=== PATIENT | female | born 1965 | race Caucasian/White ===

== ENCOUNTER → 2017-11-20 | Outpatient (CLI) | payer BC ==
[~2017-11-20] MED LIST: ACET325 PO; ALBU90I INH; ALBU90OI INH; ALPR.5; ARIP10; Amoxicillin500 MG PO; BENZ2 PO; BUSP5; BUTASPCAFT PO; Buspirone HCl7.5 MG PO; CEPH500 PO; CITA20 PO; CLAR500 PO; CLON1; CYCL10 PO; Clotrim Antifun15 GM TP; Cymbalta30 MG PO; D3-20002000 UNIT PO; DIAZ5 PO; DICL75ER PO; DULO30; DULO60 PO; ENTRESTO 24 MG1 EACH PO; EPIPEN 2-P0.3 MG/0.3 IJ; EPIPEN0.3 MG/0.3 IM; ESTRADIOL1 MG PO; ESTRTP; FLUO10; FLUO20; FLUSAL1005 IH; GABA300; HALO2 PO; HYDACE5 PO; HYDPAM25; HYDR1TAB94; HYDR1TAB94 PO; IBUP100S; IBUP200; IBUP200 PO; IBUP400 PO; IBUP600 PO; IMITREX; IPRAOI INH; Imitrex100 MG PO; LIDO700A20 TOP; LORA1 PO; LOSA25 PO; METF500; METH10; METH10 PO; METH40 PO; METHADONE; METO25ER PO; METPRE4DP PO; Mobic7.5 MG PO; NICO21TP TOP; Neurontin 300300 MG PO; OMEPRAZOLE MAGN20 MG PO; ONDA4ODT MM; OXYACE5T PO; OXYACE7.5T PO; OXYB5 PO; OXYC10ER PO; OXYC15ER PO; PENVK500 PO; PHENTERMINE PO; PRAZ1 PO; PRED20 PO; PROG100; PROG100 PO; PROM25 PO; Percocet 5-3251 EACH PO; QUET25 PO; QUET300; Robaxin-750750 MG PO; Robaxin500 MG PO; SPIR25 PO; SUMA25; SUMA25 PO; SUMA6I SC; TOPI50 PO; TORSE20 PO; TRAM50 PO; Ultram50 MG PO; ZOLM2.5; ZOLP10 PO
[2017-11-20 16:11] LABS: BASOPHILS ABSOLUTE AUTO 0.03 K/mm3 (0.00-0.23); BASOPHILS PERCENT AUTO 0 % (0-2); EOSINOPHILS ABSOLUTE AUTO 0.11 K/mm3 (0.00-0.68); EOSINOPHILS PERCENT AUTO 2 % (0-6); Hematocrit 40.2 % (33.0-51.0); Hemoglobin 13.6 g/dL (11.5-16.0); IMMATURE GRAN PERCENT AUTO 0 % (0-1); LYMPHOCYTES ABSOLUTE AUTO 2.54 K/mm3 (0.84-5.20); LYMPHOCYTES PERCENT AUTO 34 % (21-46); MONOCYTES ABSOLUTE AUTO 0.85 K/mm3 (0.16-1.47); MONOCYTES PERCENT AUTO 11 % (4-13); Mean Corpuscular HGB Conc 33.8 g/dL (31.5-36.5); Mean Corpuscular Volume 86 fL (80-100); Mean Platelet Volume 10.7 fL (9.1-12.4); NEUTROPHILS ABSOLUTE AUTO 3.99 K/mm3 (1.96-9.15); NEUTROPHILS PERCENT AUTO 53 % (41-73); Platelet Count 227 K/mm3 (150-400); RDW Coefficient Variation 13.2 % (11.7-14.2); RDW Standard Deviation 41.2 fL (35.1-46.3); Red Blood Cell Count 4.69 M/mm3 (3.80-5.20); White Blood Cell Count 7.52 K/mm3 (4.00-11.30)
[2017-11-20 16:20] LABS: Alanine Aminotransfer (ALT/SGP 27 U/L (12-78); Albumin, Blood 3.2 g/dL (3.4-5.0); Albumin/Globulin Ratio 0.8 (0.8-1.8); Alk Phos 101 U/L (50-136); Anion Gap 9 mmol/L (6-16); Aspartate Aminotrans (AST/SGOT 24 U/L (12-37); Bilirubin, Total 0.4 mg/dL (0.1-1.0); Blood Urea Nitrogen 10 mg/dL (8-24); Bun/Creatinine Ratio 18.7 (12.0-20.0); CO2, Blood 23 mmol/L (21-32); Calcium, Blood 8.6 mg/dL (8.5-10.1); Chloride, Blood 109 mmol/L (98-108); Creatinine, Blood 0.53 mg/dL (0.40-1.00); Globulin, Blood 3.9 g/dL (2.2-4.0); Glomerular Filtration Rate >60 (60-); Glucose, Blood 88 mg/dL (70-99); Potassium, Blood 3.7 mmol/L (3.5-5.5); Sodium, Blood 141 mmol/L (136-145); Total Protein, Blood 7.1 g/dL (6.4-8.2)
== END ==
LOC: LAB 15:15 → LAB SHORT 15:15
PROVIDERS: Nurse Practitioner
DX: R53.1 Weakness (principal)
CPT/HCPCS: 80053; 85025

== ENCOUNTER 2018-01-31 13:18 | Emergency (ER) | payer BC ==
[~2018-01-31] VITALS: Ht 170.2 cm; Wt 79.4 kg
[~2018-01-31 13:18] MED LIST changes: -ALBU90OI INH; -BENZ2 PO; -Buspirone HCl7.5 MG PO; -CEPH500 PO; -Cymbalta30 MG PO; -ENTRESTO 24 MG1 EACH PO; -EPIPEN0.3 MG/0.3 IM; -HALO2 PO; -HYDR1TAB94 PO; -IBUP100S; -IBUP400 PO; -IMITREX; -LIDO700A20 TOP; -LOSA25 PO; -METO25ER PO; -NICO21TP TOP; -Neurontin 300300 MG PO; -OMEPRAZOLE MAGN20 MG PO; -ONDA4ODT MM; -PRAZ1 PO; -Percocet 5-3251 EACH PO; -SPIR25 PO; -TORSE20 PO
[2018-01-31] MEDS ORDERED: OMEPRAZOLE MAGN20 MG PO (14:06)
[2018-01-31 14:20] LABS: BASOPHILS ABSOLUTE AUTO 0.07 K/mm3 (0.00-0.23); BASOPHILS PERCENT AUTO 1 % (0-2); EOSINOPHILS ABSOLUTE AUTO 0.17 K/mm3 (0.00-0.68); EOSINOPHILS PERCENT AUTO 3 % (0-6); Hematocrit 42.7 % (33.0-51.0); Hemoglobin 14.2 g/dL (11.5-16.0); IMMATURE GRAN ABSOLUTE AUTO 0.01 K/mm3 (0.00-0.10); IMMATURE GRAN PERCENT AUTO 0 % (0-1); LYMPHOCYTES ABSOLUTE AUTO 2.33 K/mm3 (0.84-5.20); LYMPHOCYTES PERCENT AUTO 37 % (21-46); MONOCYTES ABSOLUTE AUTO 0.69 K/mm3 (0.16-1.47); MONOCYTES PERCENT AUTO 11 % (4-13); Mean Corpuscular HGB 28.1 pg (26.0-34.0); Mean Corpuscular HGB Conc 33.3 g/dL (31.5-36.5); Mean Corpuscular Volume 85 fL (80-100); Mean Platelet Volume 9.9 fL (9.1-12.4); NEUTROPHILS ABSOLUTE AUTO 3.12 K/mm3 (1.96-9.15); NEUTROPHILS PERCENT AUTO 49 % (41-73); Platelet Count 298 K/mm3 (150-400); RDW Coefficient Variation 13.1 % (11.7-14.2); RDW Standard Deviation 40.1 fL (35.1-46.3); Red Blood Cell Count 5.05 M/mm3 (3.80-5.20); White Blood Cell Count 6.39 K/mm3 (4.00-11.30)
[2018-01-31 14:43] LABS: Alanine Aminotransfer (ALT/SGP 43 U/L (12-78); Albumin, Blood 3.2 g/dL (3.4-5.0); Albumin/Globulin Ratio 0.8 (0.8-1.8); Alk Phos 108 U/L (50-136); Anion Gap 8 mmol/L (6-16); Aspartate Aminotrans (AST/SGOT 34 U/L (12-37); Bilirubin, Total 0.3 mg/dL (0.1-1.0); Blood Urea Nitrogen 10 mg/dL (8-24); Bun/Creatinine Ratio 16.2 (12.0-20.0); CO2, Blood 24 mmol/L (21-32); Chloride, Blood 110 mmol/L (98-108); Creatinine, Blood 0.62 mg/dL (0.40-1.00); Glomerular Filtration Rate >60 (60-); Glucose, Blood 100 mg/dL (70-99); Potassium, Blood 4.3 mmol/L (3.5-5.5); Sodium, Blood 142 mmol/L (136-145); Total Protein, Blood 7.2 g/dL (6.4-8.2)
[2018-06-18] MEDS ORDERED: HALO2 PO (14:41)
[2018-06-18] MEDS ORDERED: BENZ2 PO (14:41)
[2018-06-18] MEDS ORDERED: Cymbalta30 MG PO (14:41)
[2018-07-21] MEDS ORDERED: IMITREX (12:48)
[2018-07-21] MEDS ORDERED: IBUP100S (12:48)
[2018-07-27] MEDS ORDERED: Neurontin 300300 MG PO (11:40)
[2018-07-27] MEDS ORDERED: LOSA25 PO (11:41)
[2018-07-27] MEDS ORDERED: METO25ER PO (11:43)
[2018-07-27] MEDS ORDERED: NICO21TP TOP (11:44)
[2018-07-27] MEDS ORDERED: SPIR25 PO (11:45)
[2018-07-27] MEDS ORDERED: TORSE20 PO (11:46)
[2018-07-27] MEDS ORDERED: Percocet 5-3251 EACH PO (11:47)
[2018-09-19] MEDS ORDERED: ENTRESTO 24 MG1 EACH PO (14:49)
== END 2018-01-31 14:15 | disposition home or self-care (01) ==
LOC: ER 13:18
PROVIDERS: Internal Medicine
DX: K30 Functional dyspepsia (principal); Z71.1 Person with feared health complaint in whom no diagnosis is made; F17.210 Nicotine dependence, cigarettes, uncomplicated; Z91.048 Other nonmedicinal substance allergy status; Z88.8 Allergy status to other drugs, medicaments and biological substances; Z91.030 Bee allergy status; Z79.899 Other long term (current) drug therapy; Z86.19 Personal history of other infectious and parasitic diseases
CPT/HCPCS: 36415; 80053; 85025; 99283

== ENCOUNTER 2018-02-02 01:28 | Emergency (ER) | payer BC ==
[~2018-02-02] VITALS: Ht 170.2 cm; Wt 79.4 kg
[~2018-02-02 01:28] MED LIST changes: +OMEPRAZOLE MAGN20 MG PO
[2018-02-02 02:07] LABS: BASOPHILS ABSOLUTE AUTO 0.07 K/mm3 (0.00-0.23); BASOPHILS PERCENT AUTO 1 % (0-2); EOSINOPHILS ABSOLUTE AUTO 0.19 K/mm3 (0.00-0.68); EOSINOPHILS PERCENT AUTO 2 % (0-6); Hematocrit 42.7 % (33.0-51.0); IMMATURE GRAN ABSOLUTE AUTO 0.04 K/mm3 (0.00-0.10); IMMATURE GRAN PERCENT AUTO 0 % (0-1); LYMPHOCYTES ABSOLUTE AUTO 3.35 K/mm3 (0.84-5.20); LYMPHOCYTES PERCENT AUTO 37 % (21-46); MONOCYTES ABSOLUTE AUTO 0.78 K/mm3 (0.16-1.47); MONOCYTES PERCENT AUTO 9 % (4-13); Mean Corpuscular HGB Conc 32.8 g/dL (31.5-36.5); Mean Corpuscular Volume 85 fL (80-100); NEUTROPHILS PERCENT AUTO 52 % (41-73); Platelet Count 312 K/mm3 (150-400); RDW Coefficient Variation 12.9 % (11.7-14.2); RDW Standard Deviation 39.8 fL (35.1-46.3); White Blood Cell Count 9.13 K/mm3 (4.00-11.30)
[2018-02-02 02:21] LABS: Alanine Aminotransfer (ALT/SGP 60 U/L (12-78); Albumin, Blood 3.3 g/dL (3.4-5.0); Albumin/Globulin Ratio 0.8 (0.8-1.8); Alk Phos 121 U/L (50-136); Anion Gap 9 mmol/L (6-16); Aspartate Aminotrans (AST/SGOT 56 U/L (12-37); Bilirubin, Total 0.3 mg/dL (0.1-1.0); Blood Urea Nitrogen 18 mg/dL (8-24); Bun/Creatinine Ratio 27.2 (12.0-20.0); CO2, Blood 22 mmol/L (21-32); Calcium, Blood 8.9 mg/dL (8.5-10.1); Chloride, Blood 109 mmol/L (98-108); Creatinine, Blood 0.66 mg/dL (0.40-1.00); Globulin, Blood 4.2 g/dL (2.2-4.0); Glomerular Filtration Rate >60 (60-); Glucose, Blood 113 mg/dL (70-99); Potassium, Blood 3.7 mmol/L (3.5-5.5); Sodium, Blood 140 mmol/L (136-145); Total Protein, Blood 7.5 g/dL (6.4-8.2); Troponin I <0.015 ng/mL (0.000-0.040)
[2018-02-02 02:39] LABS: Source, Urine Clean Catch
[2018-02-02 02:44] LABS: Bilirubin, Urine Neg (Neg); Blood, Urine Neg (Neg); Glucose Qualitative, Urine Neg (Neg); Ketones, Urine Neg (Neg); Leukocyte Esterase, Urine 3+ (Neg); Nitrite, Urine Neg (Neg); Protein, Urine Neg (Neg); Specific Gravity, Urine 1.015 (1.003-1.022); Urobilinogen, Urine NORM (Normal)
[2018-02-02 02:50] LABS: Appearance, Urine Clear (Clear); Color, Urine Yellow (P-Yellow)
[2018-02-02 02:51] LABS: Bacteria Few /hpf; Red Blood Cells, Urine 0-2 /hpf (0-2); Squamous Epithelial Cells Few /hpf (Few)
[2018-02-02 02:54] LABS: U Amphetamine Screen Not Detected; U Methamphetamine Screen DETECTED
[2018-02-02 02:55] LABS: U Barbituate Screen Not Detected; U Benzodiazapine Screen DETECTED; U Buprenorphine Screen Not Detected; U Cannabinoids Screen Not Detected; U Cocaine Screen Not Detected; U Methadone Screen Not Detected; U Opiates Screen Not Detected; U Oxycodone Screen Not Detected; U Phencyclidine Screen Not Detected; U Propoxyphene Screen Not Detected
[2018-02-02 03:10] LABS: Influenza A Negative (NEGATIVE); Influenza B Negative (NEGATIVE)
[2018-02-02] MEDS ORDERED: CEPH500 PO (03:41)
[2018-06-18] MEDS ORDERED: BENZ2 PO (14:41)
[2018-06-18] MEDS ORDERED: HALO2 PO (14:41)
[2018-06-18] MEDS ORDERED: Cymbalta30 MG PO (14:41)
[2018-07-21] MEDS ORDERED: IBUP100S (12:48)
[2018-07-21] MEDS ORDERED: IMITREX (12:48)
[2018-07-27] MEDS ORDERED: Neurontin 300300 MG PO (11:40)
[2018-07-27] MEDS ORDERED: LOSA25 PO (11:41)
[2018-07-27] MEDS ORDERED: METO25ER PO (11:43)
[2018-07-27] MEDS ORDERED: NICO21TP TOP (11:44)
[2018-07-27] MEDS ORDERED: SPIR25 PO (11:45)
[2018-07-27] MEDS ORDERED: TORSE20 PO (11:46)
[2018-07-27] MEDS ORDERED: Percocet 5-3251 EACH PO (11:47)
[2018-09-19] MEDS ORDERED: ENTRESTO 24 MG1 EACH PO (14:49)
== END 2018-02-02 03:42 | disposition home or self-care (01) ==
LOC: ER 01:28
PROVIDERS: Emergency Medicine
DX: F15.129 Other stimulant abuse with intoxication, unspecified (principal); N39.0 Urinary tract infection, site not specified; Z88.8 Allergy status to other drugs, medicaments and biological substances; Z91.030 Bee allergy status; Z79.2 Long term (current) use of antibiotics; Z91.048 Other nonmedicinal substance allergy status; F17.210 Nicotine dependence, cigarettes, uncomplicated
CPT/HCPCS: 80053; 81001; 84439; 84443; 84484; 85025; 87086; 87804; 93005; 93010; 99283; J7030

== ENCOUNTER → 2018-05-03 | Outpatient (CLI) | payer BC ==
[~2018-05-03] MED LIST changes: +CEPH500 PO
[2018-05-07 10:23] LABS: Adenovirus F 40/41 Not Detected (NOT DETECT); Astrovirus Not Detected (NOT DETECT); Campylobacter Sp Not Detected (NOT DETECT); Cryptosporidium Not Detected (NOT DETECT); Cyclospora Cayetanensis Not Detected (NOT DETECT); E. Coli O157 Not Detected (NOT DETECT); Entamoeba Histolytica Not Detected (NOT DETECT); Enteroaggregative E. coli-EAEC Not Detected (NOT DETECT); Enteropathogenic E. coli-EPEC Not Detected (NOT DETECT); Enterotoxigenic E. coli-ETEC Not Detected (NOT DETECT); Giardia Lamblia Not Detected (NOT DETECT); Norovirus GI/GII Not Detected (NOT DETECT); Plesiomonas Shigelloides Not Detected (NOT DETECT); Rotavirus A Not Detected (NOT DETECT); Salmonella Sp Not Detected (NOT DETECT); Sapovirus Not Detected (NOT DETECT); Shiga Toxin-prod E. coli-STEC Not Detected (NOT DETECT); Shigella/Enteroin E. coli-EIEC Not Detected (NOT DETECT); Vibrio Cholerae Not Detected (NOT DETECT); Vibrio Sp Not Detected (NOT DETECT); Yersinia Enterocolitica Not Detected (NOT DETECT)
== END | disposition home or self-care (01) ==
LOC: LAB EV 14:00
PROVIDERS: Internal Medicine Gastroenterology
DX: B18.2 Chronic viral hepatitis C (principal); R19.7 Diarrhea, unspecified
CPT/HCPCS: 87507

== ENCOUNTER 2018-05-21 16:00 | Emergency (ER) | payer BC ==
[~2018-05-21] VITALS: Ht 170.2 cm; Wt 81.7 kg
[2018-05-21] MEDS ORDERED: SUMA25 PO (16:11)
[2018-05-21] MEDS ORDERED: HYDR1TAB94 PO (16:11)
[2018-05-21] MEDS ORDERED: ALBU90OI INH (16:12)
[2018-05-21] MEDS ORDERED: EPIPEN0.3 MG/0.3 IM (16:12)
[2018-05-21] MEDS ORDERED: IBUP400 PO (16:39)
[2018-05-21] MEDS ORDERED: Percocet 5-3251 EACH PO (16:39)
== END 2018-05-21 17:20 | disposition home or self-care (01) ==
LOC: ER 16:00
DX: M54.41 Lumbago with sciatica, right side (principal); F17.210 Nicotine dependence, cigarettes, uncomplicated; Z91.048 Other nonmedicinal substance allergy status; Z88.8 Allergy status to other drugs, medicaments and biological substances; Z91.030 Bee allergy status; Z79.899 Other long term (current) drug therapy
CPT/HCPCS: 99283

== ENCOUNTER 2018-05-23 11:38 | Emergency (ER) | payer BC ==
[~2018-05-23] VITALS: Ht 170.2 cm; Wt 81.7 kg
[~2018-05-23 11:38] MED LIST changes: +ALBU90OI INH; +EPIPEN0.3 MG/0.3 IM; +HYDR1TAB94 PO; +IBUP400 PO; +Percocet 5-3251 EACH PO
[2018-05-23] MEDS ORDERED: LIDO700A20 TOP (12:17)
== END 2018-05-23 13:00 | disposition home or self-care (01) ==
LOC: ER 11:38
DX: M54.41 Lumbago with sciatica, right side (principal); F17.210 Nicotine dependence, cigarettes, uncomplicated; Z91.048 Other nonmedicinal substance allergy status; Z88.8 Allergy status to other drugs, medicaments and biological substances; Z91.030 Bee allergy status
CPT/HCPCS: 99283

== ENCOUNTER 2018-08-12 11:39 | Emergency (ER) | payer BC ==
[~2018-08-12] VITALS: Ht 170.2 cm; Wt 85.3 kg
[~2018-08-12 11:39] MED LIST changes: +BENZ2 PO; +Cymbalta30 MG PO; +HALO2 PO; +IBUP100S; +IMITREX; +LIDO700A20 TOP; +LOSA25 PO; +METO25ER PO; +NICO21TP TOP; +Neurontin 300300 MG PO; +SPIR25 PO; +TORSE20 PO
[2018-08-12 12:22] LABS: BASOPHILS ABSOLUTE AUTO 0.06 K/mm3 (0.00-0.23); BASOPHILS PERCENT AUTO 1 % (0-2); EOSINOPHILS ABSOLUTE AUTO 0.31 K/mm3 (0.00-0.68); EOSINOPHILS PERCENT AUTO 4 % (0-6); Hematocrit 41.9 % (33.0-51.0); Hemoglobin 13.4 g/dL (11.5-16.0); IMMATURE GRAN ABSOLUTE AUTO 0.02 K/mm3 (0.00-0.10); IMMATURE GRAN PERCENT AUTO 0 % (0-1); LYMPHOCYTES ABSOLUTE AUTO 2.56 K/mm3 (0.84-5.20); LYMPHOCYTES PERCENT AUTO 29 % (21-46); MONOCYTES ABSOLUTE AUTO 0.93 K/mm3 (0.16-1.47); MONOCYTES PERCENT AUTO 10 % (4-13); Mean Corpuscular HGB 27.6 pg (26.0-34.0); Mean Corpuscular Volume 86 fL (80-100); Mean Platelet Volume 9.7 fL (9.1-12.4); NEUTROPHILS ABSOLUTE AUTO 5.04 K/mm3 (1.96-9.15); NEUTROPHILS PERCENT AUTO 57 % (41-73); Platelet Count 323 K/mm3 (150-400); RDW Coefficient Variation 13.4 % (11.7-14.2); RDW Standard Deviation 42.3 fL (35.1-46.3); Red Blood Cell Count 4.86 M/mm3 (3.80-5.20); White Blood Cell Count 8.92 K/mm3 (4.00-11.30)
[2018-08-12 12:39] LABS: Alanine Aminotransfer (ALT/SGP 52 U/L (12-78); Albumin, Blood 3.8 g/dL (3.4-5.0); Albumin/Globulin Ratio 0.9 (0.8-1.8); Alk Phos 113 U/L (50-136); Anion Gap 6 mmol/L (6-16); Aspartate Aminotrans (AST/SGOT 36 U/L (12-37); Bilirubin, Total 0.5 mg/dL (0.1-1.0); Blood Urea Nitrogen 16 mg/dL (8-24); Bun/Creatinine Ratio 19.4 (12.0-20.0); CO2, Blood 33 mmol/L (21-32); Calcium, Blood 9.3 mg/dL (8.5-10.1); Chloride, Blood 100 mmol/L (98-108); Creatinine, Blood 0.83 mg/dL (0.40-1.00); Globulin, Blood 4.2 g/dL (2.2-4.0); Glomerular Filtration Rate >60 (60-); Glucose, Blood 115 mg/dL (70-99); Potassium, Blood 3.8 mmol/L (3.5-5.5); Sodium, Blood 139 mmol/L (136-145); Troponin I <0.015 ng/mL (0.000-0.040)
== END 2018-08-12 14:05 | disposition home or self-care (01) ==
LOC: ER 11:39
PROVIDERS: Internal Medicine
DX: I50.9 Heart failure, unspecified (principal); F17.210 Nicotine dependence, cigarettes, uncomplicated
CPT/HCPCS: 36415; 71046; 80053; 83880; 84484; 85025; 93005; 93010; 99285-25

== ENCOUNTER 2018-11-07 14:47 | Emergency (ER) | payer BC ==
[~2018-11-07] VITALS: Ht 172.7 cm; Wt 85.3 kg
[~2018-11-07 14:47] MED LIST changes: +ENTRESTO 24 MG1 EACH PO
[2018-11-07 16:31] LABS: BASOPHILS ABSOLUTE AUTO 0.05 K/mm3 (0.00-0.23); BASOPHILS PERCENT AUTO 1 % (0-2); EOSINOPHILS ABSOLUTE AUTO 0.07 K/mm3 (0.00-0.68); EOSINOPHILS PERCENT AUTO 1 % (0-6); Hematocrit 44.5 % (33.0-51.0); Hemoglobin 14.9 g/dL (11.5-16.0); IMMATURE GRAN ABSOLUTE AUTO 0.03 K/mm3 (0.00-0.10); IMMATURE GRAN PERCENT AUTO 0 % (0-1); LYMPHOCYTES ABSOLUTE AUTO 2.72 K/mm3 (0.84-5.20); LYMPHOCYTES PERCENT AUTO 26 % (21-46); MONOCYTES ABSOLUTE AUTO 0.68 K/mm3 (0.16-1.47); MONOCYTES PERCENT AUTO 6 % (4-13); Mean Corpuscular HGB 28.1 pg (26.0-34.0); Mean Corpuscular HGB Conc 33.5 g/dL (31.5-36.5); Mean Corpuscular Volume 84 fL (80-100); Mean Platelet Volume 9.7 fL (9.1-12.4); NEUTROPHILS ABSOLUTE AUTO 7.09 K/mm3 (1.96-9.15); NEUTROPHILS PERCENT AUTO 67 % (41-73); Platelet Count 405 K/mm3 (150-400); RDW Coefficient Variation 13.3 % (11.7-14.2); RDW Standard Deviation 41.1 fL (35.1-46.3); Red Blood Cell Count 5.31 M/mm3 (3.80-5.20); White Blood Cell Count 10.64 K/mm3 (4.00-11.30)
[2018-11-07 16:55] LABS: Alanine Aminotransfer (ALT/SGP 34 U/L (12-78); Albumin, Blood 4.3 g/dL (3.4-5.0); Albumin/Globulin Ratio 0.9 (0.8-1.8); Alk Phos 126 U/L (50-136); Anion Gap 9 mmol/L (6-16); Aspartate Aminotrans (AST/SGOT 25 U/L (12-37); Bilirubin, Total 0.4 mg/dL (0.1-1.0); Blood Urea Nitrogen 12 mg/dL (8-24); Bun/Creatinine Ratio 14.2 (12.0-20.0); CO2, Blood 24 mmol/L (21-32); Calcium, Blood 10.1 mg/dL (8.5-10.1); Chloride, Blood 104 mmol/L (98-108); Creatinine, Blood 0.85 mg/dL (0.40-1.00); Globulin, Blood 4.7 g/dL (2.2-4.0); Glomerular Filtration Rate >60 (60-); Glucose, Blood 92 mg/dL (70-99); Sodium, Blood 137 mmol/L (136-145); Troponin I <0.015 ng/mL (0.000-0.040)
[2018-11-07] MEDS ORDERED: Buspirone HCl7.5 MG PO (19:59)
[2018-11-07] MEDS ORDERED: HYDR1TAB94 PO (20:02)
[2018-11-07] MEDS ORDERED: SPIR25 PO (20:02)
[2018-11-07] MEDS ORDERED: LOSA25 PO (20:03)
[2018-11-07] MEDS ORDERED: PRAZ1 PO (20:03)
[2018-11-07] MEDS ORDERED: TORSE20 PO (20:04)
[2018-11-07] MEDS ORDERED: ONDA4ODT MM (20:37)
== END 2018-11-07 20:44 | disposition home or self-care (01) ==
LOC: ER 14:47
PROVIDERS: Physician Assistant
DX: R00.0 Tachycardia, unspecified (principal); R11.2 Nausea with vomiting, unspecified; E86.0 Dehydration; I50.9 Heart failure, unspecified; F17.210 Nicotine dependence, cigarettes, uncomplicated; Z79.899 Other long term (current) drug therapy; Z91.048 Other nonmedicinal substance allergy status; Z88.8 Allergy status to other drugs, medicaments and biological substances; Z91.030 Bee allergy status
CPT/HCPCS: 36415; 71046; 80053; 83880; 84484; 85025; 93005; 93010; 96361; 96374; 99285-25; J2405; J7120

== ENCOUNTER 2019-05-10 18:31 | Emergency (ER) | payer BC, OTHER ==
[~2019-05-10] VITALS: Ht 170.2 cm; Wt 90.7 kg
[~2019-05-10 18:31] MED LIST changes: +Buspirone HCl7.5 MG PO; +ONDA4ODT MM; +PRAZ1 PO
[2019-05-10 19:03] LABS: BASOPHILS ABSOLUTE AUTO 0.07 K/mm3 (0.00-0.23); BASOPHILS PERCENT AUTO 1 % (0-2); EOSINOPHILS ABSOLUTE AUTO 0.14 K/mm3 (0.00-0.68); EOSINOPHILS PERCENT AUTO 1 % (0-6); Hematocrit 42.4 % (33.0-51.0); Hemoglobin 14.6 g/dL (11.5-16.0); IMMATURE GRAN ABSOLUTE AUTO 0.06 K/mm3 (0.00-0.10); IMMATURE GRAN PERCENT AUTO 1 % (0-1); LYMPHOCYTES ABSOLUTE AUTO 4.03 K/mm3 (0.84-5.20); LYMPHOCYTES PERCENT AUTO 34 % (21-46); MONOCYTES ABSOLUTE AUTO 1.03 K/mm3 (0.16-1.47); MONOCYTES PERCENT AUTO 9 % (4-13); Mean Corpuscular HGB 30.1 pg (26.0-34.0); Mean Corpuscular HGB Conc 34.4 g/dL (31.5-36.5); Mean Corpuscular Volume 87 fL (80-100); Mean Platelet Volume 10.2 fL (9.1-12.4); NEUTROPHILS PERCENT AUTO 56 % (41-73); Platelet Count 282 K/mm3 (150-400); RDW Coefficient Variation 13.1 % (11.7-14.2); Red Blood Cell Count 4.85 M/mm3 (3.80-5.20); White Blood Cell Count 12.03 K/mm3 (4.00-11.30)
[2019-05-10 19:41] LABS: Alanine Aminotransfer (ALT/SGP 27 U/L (12-78); Albumin, Blood 4.1 g/dL (3.4-5.0); Alk Phos 93 U/L (50-136); Anion Gap 9 mmol/L (6-16); Aspartate Aminotrans (AST/SGOT 15 U/L (12-37); Bilirubin, Total 0.5 mg/dL (0.1-1.0); Blood Urea Nitrogen 26 mg/dL (8-24); Bun/Creatinine Ratio 24.8 (12.0-20.0); CO2, Blood 23 mmol/L (21-32); Calcium, Blood 9.9 mg/dL (8.5-10.1); Chloride, Blood 105 mmol/L (98-108); Creatinine, Blood 1.05 mg/dL (0.40-1.00); Globulin, Blood 4.1 g/dL (2.2-4.0); Glomerular Filtration Rate 58 (60-); Glucose, Blood 111 mg/dL (70-99); Sodium, Blood 137 mmol/L (136-145); Total Protein, Blood 8.2 g/dL (6.4-8.2); Troponin I <0.015 ng/mL (0.000-0.040)
[2019-05-10] MEDS ORDERED: PRED10 (20:19)
== END 2019-05-10 20:49 | disposition home or self-care (01) ==
LOC: ER 18:31
PROVIDERS: Emergency Medicine
DX: R07.9 Chest pain, unspecified (principal); Z88.8 Allergy status to other drugs, medicaments and biological substances; Z91.030 Bee allergy status; Z91.048 Other nonmedicinal substance allergy status; Z79.899 Other long term (current) drug therapy; G43.909 Migraine, unspecified, not intractable, without status migrainosus; I50.9 Heart failure, unspecified; F17.210 Nicotine dependence, cigarettes, uncomplicated
CPT/HCPCS: 36415; 71046; 80053; 84484; 85025; 93005; 93010; 96361; 96374; 99285-25; J1885; J7030

== ENCOUNTER 2019-05-12 11:06 | Emergency (ER) | payer BC, OTHER ==
[~2019-05-12] VITALS: Ht 170.2 cm; Wt 90.7 kg
[~2019-05-12 11:06] MED LIST changes: +PRED10
[2019-05-12 12:25] LABS: Alanine Aminotransfer (ALT/SGP 25 U/L (12-78); Albumin, Blood 3.4 g/dL (3.4-5.0); Alk Phos 81 U/L (50-136); Anion Gap 6 mmol/L (6-16); Aspartate Aminotrans (AST/SGOT 13 U/L (12-37); Bilirubin, Total 0.6 mg/dL (0.1-1.0); Blood Urea Nitrogen 22 mg/dL (8-24); Bun/Creatinine Ratio 26.2 (12.0-20.0); CO2, Blood 25 mmol/L (21-32); Calcium, Blood 9.4 mg/dL (8.5-10.1); Chloride, Blood 109 mmol/L (98-108); Creatinine, Blood 0.84 mg/dL (0.40-1.00); Globulin, Blood 3.5 g/dL (2.2-4.0); Glomerular Filtration Rate >60 (60-); Glucose, Blood 104 mg/dL (70-99); Magnesium, Blood 2.2 mg/dL (1.6-2.4); Potassium, Blood 4.2 mmol/L (3.5-5.5); Sodium, Blood 140 mmol/L (136-145); Total Protein, Blood 6.9 g/dL (6.4-8.2); Troponin I <0.015 ng/mL (0.000-0.040)
[2019-05-12 12:39] LABS: BASOPHILS ABSOLUTE AUTO 0.05 K/mm3 (0.00-0.23); BASOPHILS PERCENT AUTO 1 % (0-2); EOSINOPHILS ABSOLUTE AUTO 0.08 K/mm3 (0.00-0.68); EOSINOPHILS PERCENT AUTO 1 % (0-6); Hematocrit 38.3 % (33.0-51.0); Hemoglobin 12.8 g/dL (11.5-16.0); IMMATURE GRAN ABSOLUTE AUTO 0.05 K/mm3 (0.00-0.10); IMMATURE GRAN PERCENT AUTO 1 % (0-1); LYMPHOCYTES ABSOLUTE AUTO 2.61 K/mm3 (0.84-5.20); LYMPHOCYTES PERCENT AUTO 33 % (21-46); MONOCYTES ABSOLUTE AUTO 0.57 K/mm3 (0.16-1.47); MONOCYTES PERCENT AUTO 7 % (4-13); Mean Corpuscular HGB 29.7 pg (26.0-34.0); Mean Corpuscular HGB Conc 33.4 g/dL (31.5-36.5); Mean Corpuscular Volume 89 fL (80-100); Mean Platelet Volume 10.4 fL (9.1-12.4); NEUTROPHILS ABSOLUTE AUTO 4.57 K/mm3 (1.96-9.15); NEUTROPHILS PERCENT AUTO 58 % (41-73); Platelet Count 216 K/mm3 (150-400); RDW Coefficient Variation 13.1 % (11.7-14.2); RDW Standard Deviation 42.6 fL (35.1-46.3); Red Blood Cell Count 4.31 M/mm3 (3.80-5.20); White Blood Cell Count 7.93 K/mm3 (4.00-11.30)
[2019-05-12 13:14] LABS: Source, Urine Voided
[2019-05-12 13:18] LABS: Bilirubin, Urine Neg (Neg); Blood, Urine Neg (Neg); Glucose Qualitative, Urine Neg (Neg); Ketones, Urine Neg (Neg); Leukocyte Esterase, Urine Neg (Neg); Nitrite, Urine Neg (Neg); Protein, Urine Neg (Neg); Urobilinogen, Urine NORM (Normal)
[2019-05-12 13:29] LABS: Appearance, Urine Clear (Clear); Color, Urine No Color (P-Yellow)
== END 2019-05-12 14:56 | disposition home or self-care (01) ==
LOC: ER 11:06
PROVIDERS: Emergency Medicine
DX: I42.9 Cardiomyopathy, unspecified (principal); Z88.8 Allergy status to other drugs, medicaments and biological substances; Z91.030 Bee allergy status; Z91.048 Other nonmedicinal substance allergy status; Z79.899 Other long term (current) drug therapy; Z79.52 Long term (current) use of systemic steroids; G43.909 Migraine, unspecified, not intractable, without status migrainosus; I50.9 Heart failure, unspecified; F17.210 Nicotine dependence, cigarettes, uncomplicated
CPT/HCPCS: 71046; 80053; 81003; 83735; 83880; 84484; 85025; 93005; 93010; 93225; 93226; 96360; 96361; 99285-25; J7030

== ENCOUNTER 2019-05-20 07:16 | Observation (INO) | payer BC, OTHER ==
[~2019-05-20] VITALS: Ht 170.2 cm; Wt 96.0 kg
[2019-05-20 07:42] LABS: BASOPHILS ABSOLUTE AUTO 0.08 K/mm3 (0.00-0.23); BASOPHILS PERCENT AUTO 1 % (0-2); EOSINOPHILS ABSOLUTE AUTO 0.19 K/mm3 (0.00-0.68); EOSINOPHILS PERCENT AUTO 2 % (0-6); Hematocrit 40.6 % (33.0-51.0); Hemoglobin 13.5 g/dL (11.5-16.0); IMMATURE GRAN ABSOLUTE AUTO 0.02 K/mm3 (0.00-0.10); IMMATURE GRAN PERCENT AUTO 0 % (0-1); LYMPHOCYTES ABSOLUTE AUTO 3.87 K/mm3 (0.84-5.20); LYMPHOCYTES PERCENT AUTO 35 % (21-46); MONOCYTES ABSOLUTE AUTO 1.15 K/mm3 (0.16-1.47); MONOCYTES PERCENT AUTO 10 % (4-13); Mean Corpuscular HGB 29.5 pg (26.0-34.0); Mean Corpuscular HGB Conc 33.3 g/dL (31.5-36.5); Mean Corpuscular Volume 89 fL (80-100); Mean Platelet Volume 10.2 fL (9.1-12.4); NEUTROPHILS ABSOLUTE AUTO 5.83 K/mm3 (1.96-9.15); NEUTROPHILS PERCENT AUTO 52 % (41-73); Platelet Count 287 K/mm3 (150-400); RDW Coefficient Variation 13.1 % (11.7-14.2); RDW Standard Deviation 42.9 fL (35.1-46.3); Red Blood Cell Count 4.57 M/mm3 (3.80-5.20); White Blood Cell Count 11.14 K/mm3 (4.00-11.30)
[2019-05-20 08:10] LABS: Alanine Aminotransfer (ALT/SGP 30 U/L (12-78); Albumin, Blood 3.9 g/dL (3.4-5.0); Alk Phos 100 U/L (50-136); Anion Gap 10 mmol/L (6-16); Aspartate Aminotrans (AST/SGOT 17 U/L (12-37); Bilirubin, Total 0.5 mg/dL (0.1-1.0); Blood Urea Nitrogen 17 mg/dL (8-24); Bun/Creatinine Ratio 20.4 (12.0-20.0); CO2, Blood 25 mmol/L (21-32); Calcium, Blood 9.8 mg/dL (8.5-10.1); Chloride, Blood 102 mmol/L (98-108); Creatinine, Blood 0.83 mg/dL (0.40-1.00); Ethanol (Alcohol), Blood, Med <3 mg/dL; Globulin, Blood 3.8 g/dL (2.2-4.0); Glomerular Filtration Rate >60 (60-); Glucose, Blood 160 mg/dL (70-99); Potassium, Blood 3.8 mmol/L (3.5-5.5); Salicylate 2.5 mg/dL (2.8-20.0); Sodium, Blood 137 mmol/L (136-145); Thyroxine (T4) 14.7 ug/dL (4.8-13.9); Total Protein, Blood 7.7 g/dL (6.4-8.2); Troponin I <0.015 ng/mL (0.000-0.040)
[2019-05-20 08:16] LABS: Acetaminophen, Random <2.0 ug/mL (10.0-30.0)
[2019-05-20 09:46] LABS: Source, Urine Clean Catch
[2019-05-20 09:54] LABS: Appearance, Urine Clear (Clear); Bilirubin, Urine Neg (Neg); Blood, Urine Neg (Neg); Color, Urine Yellow (P-Yellow); Glucose Qualitative, Urine Neg (Neg); Ketones, Urine Neg (Neg); Leukocyte Esterase, Urine 1+ (Neg); Nitrite, Urine Neg (Neg); Protein, Urine Neg (Neg); Urobilinogen, Urine NORM (Normal)
[2019-05-20 10:11] LABS: U Amphetamine Screen Not Detected; U Barbituate Screen Not Detected; U Benzodiazapine Screen Not Detected; U Buprenorphine Screen Not Detected; U Cannabinoids Screen Not Detected; U Cocaine Screen Not Detected; U Methadone Screen Not Detected; U Methamphetamine Screen Not Detected; U Opiates Screen Not Detected; U Oxycodone Screen Not Detected; U Phencyclidine Screen Not Detected; U Propoxyphene Screen Not Detected
[2019-05-20 10:20] LABS: Bacteria Rare /hpf; Red Blood Cells, Urine 0-2 /hpf (0-2); Squamous Epithelial Cells Rare /hpf (Few); White Blood Cells, Urine 0-2 /hpf (0-5)
--- NOTE | 2019-05-20 12:01 | NUR ---
PT ARRIVED TO PCU 1 FROM ED. CARDIZEM GTT RUNNING AT 5MG/HR. CURRENT HR NSR IN 80S. DENIES CP OR SOB. ALERT AND ORIENTED, STATES SHE WANTS TO GO HOME. CONSULTS CALLED FOR CARDIOLOGY AND NEPHROLOGY. PT AWAKE WITH FAMILY AT BEDSIDE AND OIL DISTRIBUTOR TENDER IN ROOM NOW GETTING HISTORY. NO FURTHER NEEDS OR CONCERNS AT THIS TIME.
[2019-05-20] MEDS ORDERED: Potassium99 MG PO (12:07)
--- NOTE | 2019-05-20 13:24 | NUR ---
DR HARDY MADE AWARE OF PT'S HISTORY OF [facility]. STATES TO HOLD XARELTO AND HE WILL REEVALUATE IN CHART. MEDICATED FOR MIGRAINE. PT STATES SHE SMOKES AND MAY NEED A NICOTINE PATCH EVENTUALLY BUT STATES SHE DOESN'T WANT ONE RIGHT NOW. FAMILY AT BEDSIDE. NO FURTHER NEEDS OR CONCERNS AT THIS TIME.
--- NOTE | 2019-05-20 16:32 | NUR ---
PT CONCERNED ABOUT SWELLING IN FINGERS DUE TO NOT TAKING MEDS THIS AM. DISCUSSED WITH ATMOSPHERIC DRIER TENDER. MESSAGE LEFT WITH DR GILMORE ASKING FOR FURTHER INSTRUCTIONS
--- NOTE | 2019-05-20 18:19 | NUR ---
SHIFT SUMMARY: DR GARCIA CAME TO SEE PT AND ENTERED ORDERS. SPOKE WITH DR GILMORE OVER PHONE WELL AND DISCUSSED DR GARCIA'S ORDERS WITH HIM. STATES TO KEEP MEDS ORDERED AND HE WILL SEE PT LATER. PT AND FAMILY AWARE. FAMILY AT BEDSIDE AT THIS TIME. NO FURTHER CHANGES OR NEEDS AT THIS TIME. CURRENTLY NSR WITH HR IN 80S
--- NOTE | 2019-05-20 21:19 | NUR ---
PCU NIGHTSHIFT ASSUMED CARE OF PT APPROX. 1900. PT A&OX4. VITAL SIGNS STABLE. ASSESSMENT COMPLETED. PT HEART RHYTHM IN SINUS RHYTHM IN 70'S AT THIS TIME. PT DENIES ANY CHEST PALPITATIONS, LIGHTHEADED, DIZZINESS. NO S/SX OF ACUTE DISTRESS. PT REPORTS "FEELING GOOD" AT THIS TIME. PT ABLE TO AMBULATE IN ROOM INDEPENTLY AND TOLERATES WELL. FAMILY AT BEDSIDE AT THIS TIME. CALL LIGHT IN REACH AND PT DENIES ANY NEEDS AT THIS TIME. WILL CONTINUE TO MONITOR.
[2019-05-21 04:00] LABS: Hematocrit 35.5 % (33.0-51.0); Hemoglobin 11.8 g/dL (11.5-16.0)
[2019-05-21 04:35] LABS: Albumin, Blood 3.1 g/dL (3.4-5.0); Anion Gap 4 mmol/L (6-16); Blood Urea Nitrogen 17 mg/dL (8-24); Bun/Creatinine Ratio 18.5 (12.0-20.0); CO2, Blood 29 mmol/L (21-32); Calcium, Blood 8.7 mg/dL (8.5-10.1); Chloride, Blood 108 mmol/L (98-108); Creatinine, Blood 0.92 mg/dL (0.40-1.00); Glomerular Filtration Rate >60 (60-); Glucose, Blood 106 mg/dL (70-99); Phosphorus, Blood 3.6 mg/dL (2.5-4.9); Potassium, Blood 4.1 mmol/L (3.5-5.5); Sodium, Blood 141 mmol/L (136-145)
--- NOTE | 2019-05-21 06:48 | NUR ---
SHIFT SUMMARY PT PLEASANT, COOPERATIVE AND USES CALL LIGHT APPROPRIATELY. PT REMAINS A&OX4. ASSESSMENT FINDINGS REMAIN UNCHANGED. VITAL SIGNS REMAIN STABLE. PT HEART RHTYHM REMAINS NORMAL SINUS WITH HEART RATE IN 70'S-80'S. PT ABLE TO SLEEP MOST OF SHIFT. FAMILY REMAINS AT BEDSIDE. BED IN LOW POSITION, CALL LIGHT IN REACH AND PT DENIES ANY NEEDS AT THIS TIME. WILL CONTINUE TO MONITOR UNTIL HANDOFF TO DAYSHIFT RN.
--- NOTE | 2019-05-21 11:51 | NUR ---
(SP) PHONES AND OK TO DC PATIENT ON HER HOME MEDS. NO CHANGES NEEDED PER HIM. FAMILY MEMBER COMES TO THIS RN SAYS PT VERY UPSET (AND STATES THIS IS HOW IT STARTS) PT HAS PULSE RATE OF [address] LIGHT. PER SON PT WAS ON PHONE WITH DAUGHTER AND SKIN TOGGLER OFFICE AND BECAME AGITATED. SHE IS NOTED TO BE SITTING ON EDGE OF BED AND RAPIDLY BREATHING. PT IS ENCOURAGED TO CALM DOWN AND FAMILY IS ASKED TO TRY AND NOT TELL PT THINGS THAT WILL UPSET HER. THIS RN WILL CONTINUE TO MONITOR.
--- NOTE | 2019-05-21 12:34 | NUR ---
ECHOCARDIOGRAM COMPLETE
--- NOTE | 2019-05-21 17:43 | NUR ---
ATTEMPT TO DC PATIENT AT 1615 PT INSISTING ON TAKING SHOWER PRIOR TO LEAVING AND IS OUT OF SHOWER ABLE TO DC AT 1740. SAMEER CANALES DC'S PATIENT TO HOME.
== END 2019-05-21 17:53 | disposition home or self-care (01) ==
LOC: ER 07:16 → PCU 07:17 → ER 09:47 → PCU 09:47
PROVIDERS: Emergency Medicine; Internal Medicine Nephrology; ADMIT Internal Medicine
PROC: 5A2204Z Restoration of Cardiac Rhythm, Single (ICD-10-PCS; principal; 2019-05-20)
DX: I47.1 Supraventricular tachycardia (principal); I50.32 Chronic diastolic (congestive) heart failure; F17.210 Nicotine dependence, cigarettes, uncomplicated; I42.8 Other cardiomyopathies; E88.09 Other disorders of plasma-protein metabolism, not elsewhere classified; N18.2 Chronic kidney disease, stage 2 (mild); I34.0 Nonrheumatic mitral (valve) insufficiency; E87.70 Fluid overload, unspecified; I00 Rheumatic fever without heart involvement; B18.2 Chronic viral hepatitis C; Z79.899 Other long term (current) drug therapy; Z88.8 Allergy status to other drugs, medicaments and biological substances
CPT/HCPCS: 36415; 71250; 74176; 80053; 80069; 81001; 83735; 83880; 84436; 84443; 84484; 85014; 85018; 85025; 87086; 92960; 93005; 93010; 93308; 93321; 96361-59; 96374-59; 96375-59; 99285-25; G0378; G0480; J0153; J2270; J2405; J2704; J2765; J7030

== ENCOUNTER → 2019-05-31 | Outpatient (CLI) | payer BC, OTHER ==
[~2019-05-31] MED LIST changes: +Potassium99 MG PO
[2019-06-01 13:14] LABS: Microalbumin, Urine Quant. <5.000 mg/L (0.000-20.000); Protein, Urine Quantitative <5.0 mg/dL (0.0-11.9)
== END | disposition home or self-care (01) ==
LOC: LAB SHORT 10:00 → LAB 10:00 → LAB FUT 05-23 08:55
PROVIDERS: Internal Medicine Nephrology
DX: N18.2 Chronic kidney disease, stage 2 (mild) (principal); D75.1 Secondary polycythemia; N25.81 Secondary hyperparathyroidism of renal origin; E55.9 Vitamin D deficiency, unspecified; E78.00 Pure hypercholesterolemia, unspecified; R76.9 Abnormal immunological finding in serum, unspecified; R94.6 Abnormal results of thyroid function studies; R94.5 Abnormal results of liver function studies
CPT/HCPCS: 81050; 82043; 82570; 84156

== ENCOUNTER 2019-10-12 20:30 | Observation (INO) | payer BC, OTHER ==
[~2019-10-12] VITALS: Ht 175.3 cm; Wt 89.4 kg
[~2019-10-12 20:30] MED LIST changes: +POTA10T PO; -Potassium99 MG PO
[2019-10-12] MEDS ORDERED: BENZ100A PO (21:09)
[2019-10-12] MEDS ORDERED: ENTRESTO 49 MG1 EACH PO (21:10)
[2019-10-12] MEDS ORDERED: CYAN500 PO (21:11)
[2019-10-12] MEDS ORDERED: IRON150C PO (21:11)
[2019-10-12] MEDS ORDERED: PANT40 PO (21:13)
[2019-10-12] MEDS ORDERED: TOPI100 PO (21:13)
[2019-10-12] MEDS ORDERED: ALBU2.5V5 INH (21:14)
[2019-10-12] MEDS ORDERED: AMOCLA500 PO (21:14)
[2019-10-12] MEDS ORDERED: ALBU90OI (21:14)
[2019-10-12 21:21] LABS: BASOPHILS ABSOLUTE AUTO 0.09 K/mm3 (0.00-0.23); BASOPHILS PERCENT AUTO 1 % (0-2); EOSINOPHILS ABSOLUTE AUTO 0.05 K/mm3 (0.00-0.68); EOSINOPHILS PERCENT AUTO 1 % (0-6); Hematocrit 40.9 % (33.0-51.0); Hemoglobin 13.6 g/dL (11.5-16.0); IMMATURE GRAN ABSOLUTE AUTO 0.03 K/mm3 (0.00-0.10); IMMATURE GRAN PERCENT AUTO 0 % (0-1); LYMPHOCYTES ABSOLUTE AUTO 0.83 K/mm3 (0.84-5.20); LYMPHOCYTES PERCENT AUTO 9 % (21-46); MONOCYTES ABSOLUTE AUTO 1.21 K/mm3 (0.16-1.47); MONOCYTES PERCENT AUTO 13 % (4-13); Mean Corpuscular HGB 28.3 pg (26.0-34.0); Mean Corpuscular HGB Conc 33.3 g/dL (31.5-36.5); Mean Corpuscular Volume 85 fL (80-100); Mean Platelet Volume 10.2 fL (9.1-12.4); NEUTROPHILS ABSOLUTE AUTO 7.05 K/mm3 (1.96-9.15); NEUTROPHILS PERCENT AUTO 76 % (41-73); Platelet Count 209 K/mm3 (150-400); RDW Coefficient Variation 13.2 % (11.7-14.2); Red Blood Cell Count 4.81 M/mm3 (3.80-5.20); White Blood Cell Count 9.26 K/mm3 (4.00-11.30)
[2019-10-12 21:43] LABS: Alanine Aminotransfer (ALT/SGP 20 U/L (12-78); Albumin, Blood 3.8 g/dL (3.4-5.0); Albumin/Globulin Ratio 0.9 (0.8-1.8); Alk Phos 98 U/L (50-136); Anion Gap 8 mmol/L (6-16); Aspartate Aminotrans (AST/SGOT 15 U/L (12-37); Bilirubin, Total 0.5 mg/dL (0.1-1.0); Blood Urea Nitrogen 9 mg/dL (8-24); CO2, Blood 27 mmol/L (21-32); Chloride, Blood 104 mmol/L (98-108); Creatinine, Blood 1.13 mg/dL (0.40-1.00); Globulin, Blood 4.2 g/dL (2.2-4.0); Glomerular Filtration Rate 53 (60-); Glucose, Blood 121 mg/dL (70-99); Potassium, Blood 3.6 mmol/L (3.5-5.5); Sodium, Blood 139 mmol/L (136-145); Troponin I <0.015 ng/mL (0.000-0.040)
[2019-10-13 05:26] LABS: BASOPHILS ABSOLUTE AUTO 0.02 K/mm3 (0.00-0.23); BASOPHILS PERCENT AUTO 0 % (0-2); EOSINOPHILS PERCENT AUTO 0 % (0-6); Hematocrit 35.8 % (33.0-51.0); Hemoglobin 11.6 g/dL (11.5-16.0); IMMATURE GRAN ABSOLUTE AUTO 0.03 K/mm3 (0.00-0.10); IMMATURE GRAN PERCENT AUTO 0 % (0-1); LYMPHOCYTES ABSOLUTE AUTO 0.45 K/mm3 (0.84-5.20); LYMPHOCYTES PERCENT AUTO 6 % (21-46); MONOCYTES ABSOLUTE AUTO 0.23 K/mm3 (0.16-1.47); MONOCYTES PERCENT AUTO 3 % (4-13); Mean Corpuscular HGB 28.1 pg (26.0-34.0); Mean Corpuscular HGB Conc 32.4 g/dL (31.5-36.5); Mean Corpuscular Volume 87 fL (80-100); Mean Platelet Volume 10.6 fL (9.1-12.4); NEUTROPHILS ABSOLUTE AUTO 7.27 K/mm3 (1.96-9.15); NEUTROPHILS PERCENT AUTO 91 % (41-73); Platelet Count 204 K/mm3 (150-400); RDW Coefficient Variation 13.2 % (11.7-14.2); RDW Standard Deviation 41.5 fL (35.1-46.3); Red Blood Cell Count 4.13 M/mm3 (3.80-5.20)
[2019-10-13 05:45] LABS: Bun/Creatinine Ratio 11.1 (12.0-20.0); Calcium, Blood 8.4 mg/dL (8.5-10.1); Creatinine, Blood 1.08 mg/dL (0.40-1.00); Potassium, Blood 3.9 mmol/L (3.5-5.5)
--- NOTE | 2019-10-13 05:57 | NUR ---
SHIFT SUMMARY PT ARRIVED TO UNIT FROM ED AND WAS ABLE TO STAND AND MOVE TO BED W/O ASSIST. PT PLEASENT AFFECT, REPORTS FEELING GOOD JUST HAS SORE THROAT AND BAD COUGH. RESP EVEN UNLABORED ON RA W/ SATS >92%. PT REPORTS SOME DYSNPEA AFTER COUGHING. PT REPORTS CHEST PAIN IS MINIMAL AND ONLY NOTICED WHEN SHE IS AMBULATING OR SOMEONE PALPATES BREAST BONE. DENIES OTHER NEEDS. PT LACTIC ACID IS 5.9 THIS AM, 1L NS BOLUS WAS ORDERED FOLLOWED BY 200ML/HR NS INFUSION. PT REPORTS FEELING JITTERY THIS AM D/T PREDNISONE GIVEN LAST NIGHT. DENIED OTHER NEEDS. PT INDEPENDENT IN ROOM TO RR. PT AT BEDSIDE. CALL LIGHT IN REACH.
--- NOTE | 2019-10-13 08:21 | NUR ---
AM NOTE. ASSUMED CARE OF PT APROX 0700. PT IS A&Ox4 AND IND IN THE ROOM. PT WAS ADMITTED FOR CHEST PAIN. PT'S LACTIC ACID WAS FOUND TO BE ELEVATED AT 5.9, FLUIDS WERE GIVEN AND LACTIC CAME DOWN TO 3.6. PT C/O OF LEFT LOWER CHEST/SIDE PAIN THAT GETS WORSE WITH ACTIVITY OR COUGHING. PT STATES "I FEEL LIKE THIS BUG I HAVE IS GETTING WORSE AND NOT BETTER." PT IS IN NSR IN THE 80'S. BP 92/62, RR 20, TEMP 99.8. NO EDEMA NOTED ON ASSESSMENT. L/S PT'S RIGHT SIDE VERY DIM WITH VERY LITTLE AIR MOVEMENT HEARD, LEFT SIDE WAS CLEAR T/O. PT IS ON RA AT 97%. PT STATED "THE OTHER DAY I WAS TOLD THERE WAS VERY LITTLE AIR MOVEMENT IN THE LEFT LUNG." WILL CONTINUE TO MONITOR.
--- NOTE | 2019-10-13 11:49 | NUR ---
PT UPDATE... IRRIGATED PT'S NASSAR, 100MLS WAS INTRODUCED AND 100MLS WAS RETURNED W/50 CENT PIECE SIZED CLOTS. PT TOLERATED WELL.
[2019-10-13] MEDS ORDERED: Ativan1 MG PO (16:11)
[2019-10-13] MEDS ORDERED: Prednisone20 MG PO (16:12)
== END 2019-10-13 17:55 | disposition home or self-care (01) ==
LOC: ER 20:30 → PCU 20:31
PROVIDERS: Nurse Practitioner Acute Care; Physician Assistant; ADMIT Hospitalist
DX: J45.901 Unspecified asthma with (acute) exacerbation (principal); R07.9 Chest pain, unspecified; N18.2 Chronic kidney disease, stage 2 (mild); I50.42 Chronic combined systolic (congestive) and diastolic (congestive) heart failure; I42.8 Other cardiomyopathies; G43.909 Migraine, unspecified, not intractable, without status migrainosus; G89.29 Other chronic pain; M54.9 Dorsalgia, unspecified; M06.9 Rheumatoid arthritis, unspecified; D68.0 Von Willebrand disease; I34.0 Nonrheumatic mitral (valve) insufficiency; M32.9 Systemic lupus erythematosus, unspecified; Z87.891 Personal history of nicotine dependence; Z88.8 Allergy status to other drugs, medicaments and biological substances; Z91.048 Other nonmedicinal substance allergy status; Z91.030 Bee allergy status; Z79.51 Long term (current) use of inhaled steroids; Z79.899 Other long term (current) drug therapy
CPT/HCPCS: 36415; 71046; 80048; 80053; 83605; 83880; 84145; 84484; 85025; 87040; 90670; 90686; 93005; 93010; 94640; 94760; 96361; 96372; 96374; 99285-25; A9270; G0008; G0378; J1100; J1650; J7030; J7512

== ENCOUNTER 2020-11-14 14:49 | Emergency (ER) | payer BC ==
[~2020-11-14] VITALS: Ht 167.6 cm; Wt 74.8 kg
[~2020-11-14 14:49] MED LIST changes: +ALBU2.5V5 INH; +ALBU90OI; +AMOCLA500 PO; +Ativan1 MG PO; +BENZ100A PO; +CYAN500 PO; +ENTRESTO 49 MG1 EACH PO; +IRON150C PO; +PANT40 PO; +Prednisone20 MG PO; +TOPI100 PO
--- NOTE | 2020-11-14 15:44 | NUR ---
PT CLOSE FAMILY FRIEND CALLED YESTERDAY (11/13/20) STATING PT WAS BACK FROM [facility] AND THEY HAD D/C'D PT MEDICATIONS AND PLACED HER ON LISINOPRIL BUT GAVE THE IMPRESSION SHE NEEDED ENTRESTO AND COST WAS AN ISSUE, DIRECTED HER TO GET IN TOUCH WITH CARDIOLOGY AT [facility] WHERE SHE WAS A PT PREVIOUSLY AND TO CALL IF THEY WERE UNABLE TO DO SO AND THAT I WOULD CHECK BACK IN WITH THEM, CALLED FRIEND BACK TODAY WHO WAS NOT WITH PT, ATTEMPTED TO CONTACT PT/ OR SPOUSE WAS ABLE TO MAKE CONTACT WITH MRS. [facility] WHO GAVE ME A DETAILED HX OF CURRENT EVENTS AND WHEN ASKED ABOUT HER B/P PT RELAYED THAT HER BP HAD BEEN 60/40-70/40 WITH HR AROUND 123, PT REPORTED FEELING COLD AND BOUTS OF DIZZINESS AND CONFUSION, FROM THERE INSTRUCTED PT TO GET TO ER IMMEDIATELY, PT WAS RELUCTENT BUT DID SO, PER PT IN ER THAT [facility] ALSO CALLED HER AND INSTRUCTED HER TO GET TO ER URGENTLY. SAT AND TALKED WITH THEM, PT HAD PREVIOUSLY BEEN IN THE 180S WITH HER WEIGHT AT PREVIOUS HOME VISITS PT REPORTS SHE NOW WEIGHS 145 AND HAS CUT OUT ALL FAST FOODS AND IS BEING VERY CAREFUL BUT THAT PER [facility] ORDER SHE IS NOT ON ANY DIETARY OR FLUID RESTRICTION. PT WILL CALL SHOULD ANY FURTHER QUESTIONS ARRISE.
[2020-11-14 15:50] LABS: Source, Urine Clean Catch
[2020-11-14 15:51] LABS: BASOPHILS ABSOLUTE AUTO 0.05 K/mm3 (0.00-0.23); BASOPHILS PERCENT AUTO 1 % (0-2); EOSINOPHILS ABSOLUTE AUTO 0.17 K/mm3 (0.00-0.68); EOSINOPHILS PERCENT AUTO 2 % (0-6); Hematocrit 42.4 % (33.0-51.0); Hemoglobin 13.5 g/dL (11.5-16.0); IMMATURE GRAN ABSOLUTE AUTO 0.02 K/mm3 (0.00-0.10); IMMATURE GRAN PERCENT AUTO 0 % (0-1); LYMPHOCYTES ABSOLUTE AUTO 2.93 K/mm3 (0.84-5.20); LYMPHOCYTES PERCENT AUTO 42 % (21-46); MONOCYTES ABSOLUTE AUTO 0.55 K/mm3 (0.16-1.47); MONOCYTES PERCENT AUTO 8 % (4-13); Mean Corpuscular HGB Conc 31.8 g/dL (31.5-36.5); Mean Corpuscular Volume 88 fL (80-100); Mean Platelet Volume 10.3 fL (9.1-12.4); NEUTROPHILS PERCENT AUTO 47 % (41-73); Platelet Count 290 K/mm3 (150-400); RDW Coefficient Variation 13.7 % (11.7-14.2); RDW Standard Deviation 44.2 fL (35.1-46.3); Red Blood Cell Count 4.83 M/mm3 (3.80-5.20); White Blood Cell Count 7.02 K/mm3 (4.00-11.30)
[2020-11-14 15:54] LABS: Appearance, Urine Clear (Clear); Bilirubin, Urine Neg (Neg); Blood, Urine Neg (Neg); Color, Urine Yellow (P-Yellow); Glucose Qualitative, Urine Neg (Neg); Ketones, Urine Neg (Neg); Leukocyte Esterase, Urine 2+ (Neg); Nitrite, Urine Neg (Neg); Protein, Urine Neg (Neg); Urobilinogen, Urine NORM (Normal)
[2020-11-14 16:05] LABS: Red Blood Cells, Urine 0-2 /hpf (0-2); Squamous Epithelial Cells Rare /hpf (Few)
[2020-11-14 16:06] LABS: Bacteria Rare /hpf
[2020-11-14 16:16] LABS: Alanine Aminotransfer (ALT/SGP 38 U/L (12-78); Albumin, Blood 3.5 g/dL (3.4-5.0); Albumin/Globulin Ratio 0.9 (0.8-1.8); Alk Phos 82 U/L (50-136); Anion Gap 7 mmol/L (6-16); Aspartate Aminotrans (AST/SGOT 41 U/L (12-37); Bilirubin, Total 0.2 mg/dL (0.1-1.0); Blood Urea Nitrogen 13 mg/dL (8-24); Bun/Creatinine Ratio 14.2 (12.0-20.0); CO2, Blood 25 mmol/L (21-32); Calcium, Blood 9.9 mg/dL (8.5-10.1); Chloride, Blood 109 mmol/L (98-108); Creatinine, Blood 0.91 mg/dL (0.40-1.00); Globulin, Blood 3.7 g/dL (2.2-4.0); Glomerular Filtration Rate >60 (60-); Glucose, Blood 84 mg/dL (70-99); Potassium, Blood 4.2 mmol/L (3.5-5.5); Sodium, Blood 141 mmol/L (136-145); Total Protein, Blood 7.2 g/dL (6.4-8.2); Troponin I <0.015 ng/mL (0.000-0.040)
== END 2020-11-14 17:50 | disposition home or self-care (01) ==
LOC: ER 14:49
PROVIDERS: Physician Assistant
DX: I95.9 Hypotension, unspecified (principal); I50.9 Heart failure, unspecified; Z79.52 Long term (current) use of systemic steroids; Z79.899 Other long term (current) drug therapy; Z91.09 Other allergy status, other than to drugs and biological substances; Z91.030 Bee allergy status; Z88.8 Allergy status to other drugs, medicaments and biological substances; Z87.891 Personal history of nicotine dependence
CPT/HCPCS: 36415; 71046; 80053; 81001; 84484; 85025; 87086; 93005; 93010; 96360; 96361; 99284-25; J7030

== ENCOUNTER 2020-12-08 09:04 | Emergency (ER) | payer BC ==
[~2020-12-08] VITALS: Ht 167.6 cm; Wt 68.0 kg
[2020-12-08 09:42] LABS: BASOPHILS ABSOLUTE AUTO 0.07 K/mm3 (0.00-0.23); BASOPHILS PERCENT AUTO 1 % (0-2); EOSINOPHILS ABSOLUTE AUTO 0.26 K/mm3 (0.00-0.68); EOSINOPHILS PERCENT AUTO 4 % (0-6); Hematocrit 38.1 % (33.0-51.0); IMMATURE GRAN ABSOLUTE AUTO 0.02 K/mm3 (0.00-0.10); IMMATURE GRAN PERCENT AUTO 0 % (0-1); LYMPHOCYTES ABSOLUTE AUTO 2.38 K/mm3 (0.84-5.20); LYMPHOCYTES PERCENT AUTO 39 % (21-46); MONOCYTES ABSOLUTE AUTO 0.59 K/mm3 (0.16-1.47); MONOCYTES PERCENT AUTO 10 % (4-13); Mean Corpuscular HGB 28.5 pg (26.0-34.0); Mean Corpuscular HGB Conc 31.5 g/dL (31.5-36.5); Mean Corpuscular Volume 91 fL (80-100); Mean Platelet Volume 10.8 fL (9.1-12.4); NEUTROPHILS ABSOLUTE AUTO 2.81 K/mm3 (1.96-9.15); NEUTROPHILS PERCENT AUTO 46 % (41-73); Platelet Count 211 K/mm3 (150-400); RDW Coefficient Variation 13.4 % (11.7-14.2); RDW Standard Deviation 43.8 fL (35.1-46.3); Red Blood Cell Count 4.21 M/mm3 (3.80-5.20); White Blood Cell Count 6.13 K/mm3 (4.00-11.30)
[2020-12-08] MEDS ORDERED: METO25ER PO (09:59)
[2020-12-08 10:00] LABS: Alanine Aminotransfer (ALT/SGP 117 U/L (12-78); Albumin, Blood 2.9 g/dL (3.4-5.0); Albumin/Globulin Ratio 0.9 (0.8-1.8); Alk Phos 75 U/L (50-136); Anion Gap 7 mmol/L (6-16); Aspartate Aminotrans (AST/SGOT 88 U/L (12-37); Bilirubin, Total 0.3 mg/dL (0.1-1.0); Blood Urea Nitrogen 17 mg/dL (8-24); Bun/Creatinine Ratio 17.7 (12.0-20.0); CO2, Blood 20 mmol/L (21-32); Calcium, Blood 8.8 mg/dL (8.5-10.1); Chloride, Blood 115 mmol/L (98-108); Creatinine, Blood 0.96 mg/dL (0.40-1.00); Globulin, Blood 3.2 g/dL (2.2-4.0); Glomerular Filtration Rate >60 (60-); Glucose, Blood 83 mg/dL (70-99); Potassium, Blood 4.2 mmol/L (3.5-5.5); Sodium, Blood 142 mmol/L (136-145); Total Protein, Blood 6.1 g/dL (6.4-8.2); Troponin I <0.015 ng/mL (0.000-0.040)
[2020-12-08] MEDS ORDERED: ALPR.5 PO (10:00)
[2020-12-08 10:47] LABS: Source, Urine Clean Catch
[2020-12-08 10:49] LABS: Appearance, Urine Clear (Clear); Bilirubin, Urine Neg (Neg); Blood, Urine Neg (Neg); Color, Urine Yellow (P-Yellow); Glucose Qualitative, Urine Neg (Neg); Ketones, Urine Neg (Neg); Leukocyte Esterase, Urine 1+ (Neg); Nitrite, Urine Neg (Neg); Protein, Urine Neg (Neg); Specific Gravity, Urine 1.015 (1.003-1.022); Urobilinogen, Urine NORM (Normal)
[2020-12-08 11:06] LABS: Bacteria Rare /hpf; Red Blood Cells, Urine Not Seen /hpf (0-2); Squamous Epithelial Cells Not Seen /hpf (Few); White Blood Cells, Urine 0-2 /hpf (0-5)
[2020-12-08] MEDS ORDERED: HYDR1TAB94 PO (13:31)
== END 2020-12-08 13:30 | disposition other institution (70) ==
LOC: ER 09:04
PROVIDERS: Physician Assistant
DX: I42.9 Cardiomyopathy, unspecified (principal); E87.8 Other disorders of electrolyte and fluid balance, not elsewhere classified; I50.9 Heart failure, unspecified; Z91.09 Other allergy status, other than to drugs and biological substances; Z88.8 Allergy status to other drugs, medicaments and biological substances; Z91.030 Bee allergy status; Z79.899 Other long term (current) drug therapy; Z79.52 Long term (current) use of systemic steroids; Z87.891 Personal history of nicotine dependence
CPT/HCPCS: 36415; 70450; 74177; 80053; 81001; 84484; 85025; 87086; 93005; 93010; 96374-59; 96376; 99284-25; A9270; J1170; Q9967

== ENCOUNTER 2020-12-12 15:24 | Emergency (ER) | payer BC ==
[~2020-12-12] VITALS: Ht 172.7 cm; Wt 74.8 kg
[~2020-12-12 15:24] MED LIST changes: +ALPR.5 PO
[2020-12-12 16:04] LABS: Source, Urine Clean Catch
[2020-12-12 16:08] LABS: BASOPHILS ABSOLUTE AUTO 0.09 K/mm3 (0.00-0.23); BASOPHILS PERCENT AUTO 1 % (0-2); EOSINOPHILS ABSOLUTE AUTO 0.38 K/mm3 (0.00-0.68); EOSINOPHILS PERCENT AUTO 4 % (0-6); Hematocrit 41.4 % (33.0-51.0); Hemoglobin 12.9 g/dL (11.5-16.0); IMMATURE GRAN ABSOLUTE AUTO 0.03 K/mm3 (0.00-0.10); IMMATURE GRAN PERCENT AUTO 0 % (0-1); LYMPHOCYTES ABSOLUTE AUTO 3.12 K/mm3 (0.84-5.20); LYMPHOCYTES PERCENT AUTO 29 % (21-46); MONOCYTES PERCENT AUTO 8 % (4-13); Mean Corpuscular HGB Conc 31.2 g/dL (31.5-36.5); Mean Corpuscular Volume 90 fL (80-100); Mean Platelet Volume 10.2 fL (9.1-12.4); NEUTROPHILS ABSOLUTE AUTO 6.27 K/mm3 (1.96-9.15); NEUTROPHILS PERCENT AUTO 58 % (41-73); Platelet Count 288 K/mm3 (150-400); RDW Coefficient Variation 13.2 % (11.7-14.2); RDW Standard Deviation 43.7 fL (35.1-46.3); Red Blood Cell Count 4.61 M/mm3 (3.80-5.20); White Blood Cell Count 10.79 K/mm3 (4.00-11.30)
[2020-12-12 16:10] LABS: Appearance, Urine Clear (Clear); Bilirubin, Urine Neg (Neg); Blood, Urine 4+ (Neg); Color, Urine Yellow (P-Yellow); Glucose Qualitative, Urine Neg (Neg); Ketones, Urine Neg (Neg); Leukocyte Esterase, Urine 3+ (Neg); Nitrite, Urine Neg (Neg); Protein, Urine Neg (Neg); Urobilinogen, Urine NORM (Normal)
[2020-12-12 16:21] LABS: U Amphetamine Screen Not Detected; U Barbituate Screen Not Detected; U Benzodiazapine Screen DETECTED; U Buprenorphine Screen DETECTED; U Cannabinoids Screen Not Detected; U Cocaine Screen Not Detected; U Methadone Screen Not Detected; U Methamphetamine Screen Not Detected; U Opiates Screen DETECTED; U Oxycodone Screen Not Detected; U Phencyclidine Screen Not Detected; U Propoxyphene Screen Not Detected
[2020-12-12] MEDS ORDERED: SPIRONOLACTONE25 MG PO (16:22)
[2020-12-12] MEDS ORDERED: Norco 5-325 Ta1 EACH PO (16:22)
[2020-12-12] MEDS ORDERED: METOPROLOL SUCC25 MG PO (16:22)
[2020-12-12] MEDS ORDERED: FENOFIBRATE48 MG PO (16:23)
[2020-12-12] MEDS ORDERED: ATORVASTATIN CA20 MG PO (16:23)
[2020-12-12 16:24] LABS: Bacteria Not Seen /hpf; Red Blood Cells, Urine 0-2 /hpf (0-2); Squamous Epithelial Cells Not Seen /hpf (Few); White Blood Cells, Urine TNTC /hpf (0-5)
[2020-12-12] MEDS ORDERED: TOPI100 PO (16:24)
[2020-12-12] MEDS ORDERED: METO100 PO (16:24)
[2020-12-12] MEDS ORDERED: LOW DOSE ASPIRI81 M1 PO (16:24)
[2020-12-12] MEDS ORDERED: PANTOPRAZOLE SO40 M2 PO (16:24)
[2020-12-12] MEDS ORDERED: TORSE20 PO (16:25)
[2020-12-12] MEDS ORDERED: KLOR-CON 1010 MEQ PO (16:25)
[2020-12-12] MEDS ORDERED: PRINIVIL10 MG PO (16:25)
[2020-12-12 16:31] LABS: Alanine Aminotransfer (ALT/SGP 68 U/L (12-78); Albumin, Blood 3.5 g/dL (3.4-5.0); Albumin/Globulin Ratio 0.8 (0.8-1.8); Alk Phos 99 U/L (50-136); Anion Gap 4 mmol/L (6-16); Aspartate Aminotrans (AST/SGOT 40 U/L (12-37); Bilirubin, Total 0.4 mg/dL (0.1-1.0); Blood Urea Nitrogen 16 mg/dL (8-24); Bun/Creatinine Ratio 19.1 (12.0-20.0); CO2, Blood 31 mmol/L (21-32); Calcium, Blood 10.2 mg/dL (8.5-10.1); Chloride, Blood 107 mmol/L (98-108); Creatinine, Blood 0.84 mg/dL (0.40-1.00); Globulin, Blood 4.2 g/dL (2.2-4.0); Glomerular Filtration Rate >60 (60-); Glucose, Blood 90 mg/dL (70-99); Potassium, Blood 4.9 mmol/L (3.5-5.5); Sodium, Blood 142 mmol/L (136-145); Total Protein, Blood 7.7 g/dL (6.4-8.2)
== END 2020-12-12 16:59 | disposition home or self-care (01) ==
LOC: ER 15:24
PROVIDERS: Physician Assistant
DX: N39.0 Urinary tract infection, site not specified (principal); R56.9 Unspecified convulsions; I50.9 Heart failure, unspecified; Z79.82 Long term (current) use of aspirin; Z91.09 Other allergy status, other than to drugs and biological substances; Z88.8 Allergy status to other drugs, medicaments and biological substances; Z91.030 Bee allergy status; Z79.899 Other long term (current) drug therapy; Z87.891 Personal history of nicotine dependence
CPT/HCPCS: 36415; 71045; 80053; 81001; 82947; 83605; 83735; 85025; 93005; 93010; 99285-25

== ENCOUNTER 2021-01-04 02:10 | Day surgery (SDC) | payer BC ==
[~2021-01-04 02:10] MED LIST changes: +ATORVASTATIN CA20 MG PO; +FENOFIBRATE48 MG PO; +KLOR-CON 1010 MEQ PO; +LOW DOSE ASPIRI81 M1 PO; +METO100 PO; +METOPROLOL SUCC25 MG PO; +Norco 5-325 Ta1 EACH PO; +PANTOPRAZOLE SO40 M2 PO; +PRINIVIL10 MG PO; +SPIRONOLACTONE25 MG PO
[2021-01-04] MEDS ORDERED: METO25 PO (11:14)
[2021-01-04] MEDS ORDERED: MIDO5 PO (11:17)
[2021-01-04] MEDS ORDERED: ALPR.5 PO (11:18)
[2021-01-04] MEDS ORDERED: TORSE20 PO (11:22)
== END 2021-01-04 11:38 | disposition home or self-care (01) ==
LOC: ATC 02:10
DX: I42.0 Dilated cardiomyopathy (principal); E27.8 Other specified disorders of adrenal gland; I11.0 Hypertensive heart disease with heart failure; I50.22 Chronic systolic (congestive) heart failure; F41.9 Anxiety disorder, unspecified; M06.9 Rheumatoid arthritis, unspecified; Z79.82 Long term (current) use of aspirin; Z79.899 Other long term (current) drug therapy; Z87.891 Personal history of nicotine dependence
CPT/HCPCS: 36415; 80400; 82533; 96372; J0834

== ENCOUNTER 2021-04-22 14:36 | Emergency (ER) | payer BC ==
[~2021-04-22] VITALS: Ht 170.2 cm; Wt 68.0 kg
[~2021-04-22 14:36] MED LIST changes: +METO25 PO; +MIDO5 PO
[2021-04-22] MEDS ORDERED: Crutch1 EACH MISC (16:49)
[2021-04-22] MEDS ORDERED: Norco 5-325 Ta1 EACH PO (16:49)
== END 2021-04-22 17:00 | disposition home or self-care (01) ==
LOC: ER 14:36
DX: S82.65XA Nondisplaced fracture of lateral malleolus of left fibula, initial encounter for closed fracture (principal); Z88.8 Allergy status to other drugs, medicaments and biological substances; Z91.018 Allergy to other foods; Z91.09 Other allergy status, other than to drugs and biological substances; Z91.030 Bee allergy status; Z79.82 Long term (current) use of aspirin; Z79.899 Other long term (current) drug therapy; Z87.891 Personal history of nicotine dependence; X50.1XXA Overexertion from prolonged static or awkward postures, initial encounter
CPT/HCPCS: 29515; 73610; 96372-59; 99283-25; A9270; J1885

== ENCOUNTER 2022-06-27 14:51 | Emergency (ER) | payer BC ==
[~2022-06-27] VITALS: Ht 170.2 cm; Wt 81.7 kg
[~2022-06-27 14:51] MED LIST changes: +Crutch1 EACH MISC
[2022-06-27 16:09] LABS: BASOPHILS ABSOLUTE AUTO 0.07 K/mm3 (0.00-0.23); BASOPHILS PERCENT AUTO 1 % (0-2); EOSINOPHILS ABSOLUTE AUTO 0.16 K/mm3 (0.00-0.68); EOSINOPHILS PERCENT AUTO 2 % (0-6); Hematocrit 36.1 % (33.0-51.0); Hemoglobin 12.5 g/dL (11.5-16.0); IMMATURE GRAN ABSOLUTE AUTO 0.03 K/mm3 (0.00-0.10); IMMATURE GRAN PERCENT AUTO 0 % (0-1); LYMPHOCYTES PERCENT AUTO 25 % (21-46); MONOCYTES ABSOLUTE AUTO 0.54 K/mm3 (0.16-1.47); MONOCYTES PERCENT AUTO 6 % (4-13); Mean Corpuscular HGB Conc 34.6 g/dL (31.5-36.5); Mean Corpuscular Volume 84 fL (80-100); Mean Platelet Volume 9.8 fL (9.1-12.4); NEUTROPHILS ABSOLUTE AUTO 5.94 K/mm3 (1.96-9.15); NEUTROPHILS PERCENT AUTO 66 % (41-73); Platelet Count 284 K/mm3 (150-400); RDW Coefficient Variation 12.8 % (11.7-14.2); RDW Standard Deviation 39.1 fL (35.1-46.3); Red Blood Cell Count 4.31 M/mm3 (3.80-5.20); White Blood Cell Count 9.04 K/mm3 (4.00-11.30)
[2022-06-27 16:27] LABS: Albumin, Blood 3.3 g/dL (3.4-5.0); Bilirubin, Total 0.3 mg/dL (0.1-1.0); Bun/Creatinine Ratio 24.1 (12.0-20.0); Calcium, Blood 9.1 mg/dL (8.5-10.1); Creatinine, Blood 0.67 mg/dL (0.40-1.00); Globulin, Blood 3.2 g/dL (2.2-4.0); Potassium, Blood 4.1 mmol/L (3.5-5.5); Total Protein, Blood 6.5 g/dL (6.4-8.2)
== END 2022-06-27 19:17 | disposition home or self-care (01) ==
LOC: ER 14:51
PROVIDERS: Emergency Medicine
DX: R07.9 Chest pain, unspecified (principal); R51.9 Headache, unspecified; I50.9 Heart failure, unspecified; Z96.652 Presence of left artificial knee joint; Z79.82 Long term (current) use of aspirin; Z79.899 Other long term (current) drug therapy; Z87.891 Personal history of nicotine dependence
CPT/HCPCS: 80053; 83880; 84484; 85025; 93005; 93010; J0780; J1200; J1885; J7030

== ENCOUNTER 2022-07-29 13:39 | Emergency (ER) | payer BC ==
[~2022-07-29] VITALS: Ht 170.2 cm; Wt 79.4 kg
== END 2022-07-29 14:20 | disposition home or self-care (01) ==
LOC: ER 13:39
DX: T50.901A Poisoning by unspecified drugs, medicaments and biological substances, accidental (unintentional), initial encounter (principal); R41.82 Altered mental status, unspecified; I50.9 Heart failure, unspecified; Z91.030 Bee allergy status; Z91.018 Allergy to other foods; Z88.8 Allergy status to other drugs, medicaments and biological substances; Z91.048 Other nonmedicinal substance allergy status; Z79.899 Other long term (current) drug therapy; Z79.82 Long term (current) use of aspirin; Z87.891 Personal history of nicotine dependence
CPT/HCPCS: 99284

== ENCOUNTER 2025-07-26 16:55 | Emergency (ER) | payer OTHER ==
[~2025-07-26] VITALS: Ht 170.2 cm; Wt 83.9 kg
[~2025-07-26 16:55] MED LIST changes: +FAMO20 PO; +METO10 PO; +METO50ER PO; +ONDA4 PO; +PARO10 PO; +PREGABALIN25 MG PO; +PROM12.5S PR; +ZANAFLEX413 PO
[2025-07-26 19:48] VITALS: BP 114/64
== END 2025-07-26 19:50 | disposition home or self-care (01) ==
LOC: ER 16:55
DX: S06.0XAA Concussion with loss of consciousness status unknown, initial encounter (principal); M54.2 Cervicalgia; M25.512 Pain in left shoulder; I50.9 Heart failure, unspecified; F17.210 Nicotine dependence, cigarettes, uncomplicated; Z91.030 Bee allergy status; Z91.018 Allergy to other foods; Z91.048 Other nonmedicinal substance allergy status; Z88.8 Allergy status to other drugs, medicaments and biological substances; Z59.89 Other problems related to housing and economic circumstances; Z79.899 Other long term (current) drug therapy; W18.2XXA Fall in (into) shower or empty bathtub, initial encounter
CPT/HCPCS: 70450; 71046; 72125; 73000; 99284-25

== ENCOUNTER 2025-11-03 00:17 | Emergency (ER) | payer OTHER ==
[~2025-11-03] VITALS: Ht 167.6 cm; Wt 81.7 kg
[2025-11-03 00:28] VITALS: BP 153/98
[2025-11-03 01:20] LABS: Alanine Aminotransfer (ALT/SGP 25.0 U/L (12-78); Albumin, Blood 3.7 g/dL (3.4-5.0); Albumin/Globulin Ratio 1.0 (0.8-1.8); Anion Gap 8.0 mmol/L (3-11); Aspartate Aminotrans (AST/SGOT 18.0 U/L (12-37); Bilirubin, Total 0.2 mg/dL (0.1-1.0); Blood Urea Nitrogen 10.0 mg/dL (8-24); CO2, Blood 25.0 mmol/L (21-32); Calcium, Blood 9.2 mg/dL (8.5-10.1); Chloride, Blood 108.0 mmol/L (98-108); Creatinine, Blood 0.98 mg/dL (0.40-1.00); Globulin, Blood 3.7 g/dL (2.2-4.0); Glucose, Blood 116.0 mg/dL (70-99); Magnesium, Blood 2.2 mg/dL (1.6-2.4); Potassium, Blood 4.2 mmol/L (3.5-5.5); Sodium, Blood 137.0 mmol/L (136-145); Total Protein, Blood 7.4 g/dL (6.4-8.2)
== END 2025-11-03 02:53 | disposition home or self-care (01) ==
LOC: ER 00:17
PROVIDERS: Student in an Organized Health Care Education/Training Program
DX: R07.89 Other chest pain (principal); F41.9 Anxiety disorder, unspecified; Z87.891 Personal history of nicotine dependence; Z79.899 Other long term (current) drug therapy; Z91.018 Allergy to other foods; Z91.048 Other nonmedicinal substance allergy status; Z91.030 Bee allergy status; Z88.8 Allergy status to other drugs, medicaments and biological substances
CPT/HCPCS: 80053; 83735; 84484; 93005; 93010; 99285-25; A9270